=== PATIENT | male | born 2000 | race Asian ===

== ENCOUNTER 2021-05-09 01:27 | Inpatient (IN) ==
[2021-05-09] MEDS ORDERED: SODIUM CHLORIDE 0.9% 1000ML 1,000 ML IV STA (01:41)
[2021-05-09] MEDS ORDERED: ACETAMINOPHEN 500 MG TAB PO STA (01:43)
[2021-05-09 02:10] LABS: Basophils # (auto) 0.01 K/uL (0-0.2); Basophils % (auto) 0.1 %; Hemoglobin 15.6 g/dL (14.0-18.0); Immature Granulocytes # (auto) 0.01 K/uL (0.00-0.02); Immature Granulocytes % (auto) 0.1 %; Lymphocytes # (auto) 1.33 K/uL (1.2-3.4); Lymphocytes % (auto) 19.8 %; Mean Corpuscular Hemoglobin 31.3 pg (25-34); Mean Corpuscular Hgb Conc 36.3 g/dL (32-36); Mean Corpuscular Volume 86.3 fL (80-100); Mean Platelet Volume 9.7 fL (7.4-10.4); Monocytes # (auto) 0.31 K/uL (0.11-0.59); Monocytes % (auto) 4.6 %; Neutrophils # (auto) 5.07 K/uL (1.4-6.5); Neutrophils % (auto) 75.4 %; Platelet Count 267 K/uL (130-400); RDW Coefficient of Variation 12.2 % (11.5-14.5); RDW Standard Deviation 38.6 fL (36.4-46.3); Red Blood Count 4.98 M/uL (4.7-6.1); White Blood Count 6.73 K/uL (4.8-10.8)
[2021-05-09] MEDS ORDERED: CEFEPIME 2,000 MG/20 ML VIAL IV STA (02:23)
[2021-05-09] MEDS ORDERED: SODIUM CHLORIDE 0.9% 1000ML 1,000 ML IV ONE (02:25)
[2021-05-09 02:30] LABS: Alanine Aminotransferase 18 U/L (12-78); Aspartate Aminotransferase 12 U/L (15-37); BUN Creatinine Ratio 13.3 (10-20); Blood Urea Nitrogen 19 mg/dl (7-18); Calcium 8.8 mg/dl (8.5-10.1); Carbon Dioxide 25 mmol/L (21-32); Chloride 101 mmol/L (98-107); Creatinine Clr Calc Pharmacy 56.1 ml/min; Est GFR (African American) 82.4 ml/min; Est GFR (Non-African American) 71.1 ml/min; Glucose 144 mg/dl (70-99); Potassium 3.5 mmol/L (3.5-5.1); Sodium 128 mmol/L (136-145)
[2021-05-09 02:34] LABS: Alkaline Phosphatase 75 U/L (45-117); Globulin 4.2 gm/dl (2.5-4.0); Total Protein 8.2 gm/dl (6.4-8.2); Troponin I < 0.015 ng/ml (0-0.045)
[2021-05-09 02:59] LABS: Influenza A virus by PCR Negative (Negative); Influenza B virus by PCR Negative (Negative)
[2021-05-09 04:13] LABS: Creatine Kinase 176 U/L (39-308)
--- NOTE | 2021-05-09 04:30 | History & Physical Report ---
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 Febrile illness: -T-max 39.2C in ED -Uncertain etiology of febrile illness at this point in time -COVID-19 negative, flu negative -Chest x-ray with questionable left lower lobe pneumonia, -Elevated lactic acid on admission -Negative WBC -Pro-Caleb pending -Yadkin testing pending -In ED received cefepime Acute kidney injury: -Creatinine 1.42 on admission (no baseline) -Likely secondary to decreased oral intake over the last several days in the setting of febrile illness -Negative CK making rhabdo less likely source of kidney injury -Continue IVF with NSS at 200 mL/h -Continue to monitor Hyponatremia: -Sodium of 128 on admission -Potential contributions from decreased oral intake over the last several days with decreased solute Diet: Regular CODE STATUS: Full code DVT prophylaxis: Deferred at this time, encourage ambulation as tolerated (2) Acute kidney injury: (3) Hyponatremia: History of Present Illness Primary Care Provider: [facility] Kerwin Lawson is a 20-year-old [employer] student presents for evaluation of fevers, chills, sweats and cough persistent over the last 4 days. Worse recall any specific triggers or changes over these 4 days but notes that it worsened/came to ahead last night with persistent feeling of fevers, chills, sweats, and inability to warm himself despite cranking up his heat intolerance. No other sick contacts over this time. No new partners. Has not consumed any fluids of his normal ROM. Denies abdominal pain, nausea, vomiting. Has had a hard time eating and drinking due to a sore throat over this time. No past history of mono. Allergies Allergy/AdvReac Type Severity Reaction Status Date / Time No Known Allergies Allergy Verified 05/09/21 02:17 Home Medications Medication Instructions Recorded Confirmed Type acetaminophen 325 mg tablet 650 mg PO DIRECTED PRN 05/09/21 05/09/21 History (Tylenol) Past Med/Surg History Medical History (Updated 05/09/21 @ 14:03 by Charley Grove DO) Pneumonia Social History Smoking Status: Never smoker Hx Alcohol Use: Yes Hx Substance Use: No Preferred Language: Mauritanian Communication Ability: Effective Open Claims Representative Required: No Beliefs That Will Affect Care: None Current Living Situation: Other Current Living Situation Comment: apartment with room mates Feels Safe at Home: Yes Safety Concerns: Feels Safe At This Time Assistive Devices: None Review of Systems Review of Systems: All systems reviewed & are unremarkable except as noted in HPI & below Physical Exam Constitutional: WD/WN, vitals as above Eyes: PERRL, conjunctivae normal, anicteric sclerae Respiratory: normal respiratory effort, lungs clear to auscultation Auscultation: no crackles, no rales, no rhonchi and no wheezes Cardiovascular: Rate/Rhythm: regular rate and regular rhythm Heart Sounds: no gallop, no murmur and no cardiac rub Vessels: normal peripheral pulses; no JVD Extremities: no edema Gastrointestinal (Abdomen): Inspection/Auscultation: normal bowel sounds; abdomen not distended Percussion/Palpation: abdomen soft; abdomen nontender and no guarding Musculoskeletal: no cyanosis or clubbing, extremities motor strength 5/5 Skin: no rashes, warm and dry Neurologic: PERRL, EOMI, accommodation nl, no face palsy, no dysarthria CN's II-XI intact bilaterally and moves all extremities Psychiatric: Orientation: alert and oriented x 3 Results & Data Results & Data ([facility]) Vital Signs (Past 12 Hours) Vital Signs Temp Pulse Pulse Resp BP BP Pulse Ox 05/09/21 03:42 126 H 26 H 102/53 L 91 05/09/21 03:29 38.9 C H 05/09/21 03:00 132 H 24 101/56 L 94 05/09/21 02:50 132 H 100/54 L 94 05/09/21 02:33 140 H 30 H 91 05/09/21 02:00 144 H 20 119/69 93 05/09/21 01:51 140 H 24 96 05/09/21 01:50 39.2 C H 05/09/21 01:41 155 H 22 105/65 93 05/09/21 01:32 37.8 C H 175 H 22 109/59 L 88 L Laboratory Results 05/09/21 05/09/21 05/09/21 Range/Units 04:26 02:26 01:51 WBC (4.8-10.8) K/uL RBC (4.7-6.1) M/uL Hgb (14.0-18.0) g/dL Hct (42-52) % MCV (80-100) fL MCH (25-34) pg MCHC (32-36) g/dL RDW Std Deviation (36.4-46.3) fL RDW Coeff of Bj (11.5-14.5) % Plt Count (130-400) K/uL MPV (7.4-10.4) fL Immature Gran % (Auto) % Neut % (Auto) % Lymph % (Auto) % [place] % (Auto) % Eos % (Auto) % Baso % (Auto) % Neut # (Auto) (1.4-6.5) K/uL Lymph # (Auto) (1.2-3.4) K/uL [place] # (Auto) (0.11-0.59) K/uL Eos # (Auto) (0-0.5) K/uL Baso # (Auto) (0-0.2) K/uL Immature Gran # (Auto) (0.00-0.02) K/uL Sodium (136-145) mmol/L Potassium (3.5-5.1) mmol/L Chloride (98-107) mmol/L Carbon Dioxide (21-32) mmol/L Anion Gap (3-11) BUN (7-18) mg/dl Creatinine (0.6-1.4) mg/dl Est Cr Clr Drug Dosing ml/min Est GFR ( Amer) ml/min Est GFR (Non-Af Amer) ml/min BUN/Creatinine Ratio (10-20) Glucose (70-99) mg/dl Lactate Pending 2.4 H* (0.4-2.0) mmol/L Calcium (8.5-10.1) mg/dl Total Bilirubin (0.2-1) mg/dl AST (15-37) U/L ALT (12-78) U/L Alkaline Phosphatase (45-117) U/L Total Creatine Kinase (39-308) U/L Troponin I (0-0.045) ng/ml Total Protein (6.4-8.2) gm/dl Albumin (3.4-5.0) gm/dl Globulin (2.5-4.0) gm/dl Albumin/Globulin Ratio (0.9-2) COVID-19 Eval Order SARS-CoV-2 (PCR) NEGATIVE (Negative) Influ A Molecular Assay (Negative) Influ B Molecular Assay (Negative) 05/09/21 05/09/21 05/09/21 Range/Units 01:51 01:51 01:40 WBC 6.73 (4.8-10.8) K/uL RBC 4.98 (4.7-6.1) M/uL Hgb 15.6 (14.0-18.0) g/dL Hct 43.0 (42-52) % MCV 86.3 (80-100) fL MCH 31.3 (25-34) pg MCHC 36.3 H (32-36) g/dL RDW Std Deviation 38.6 (36.4-46.3) fL RDW Coeff of Bj 12.2 (11.5-14.5) % Plt Count 267 (130-400) K/uL MPV 9.7 (7.4-10.4) fL Immature Gran % (Auto) 0.1 % Neut % (Auto) 75.4 % Lymph % (Auto) 19.8 % [place] % (Auto) 4.6 % Eos % (Auto) 0.0 % Baso % (Auto) 0.1 % Neut # (Auto) 5.07 (1.4-6.5) K/uL Lymph # (Auto) 1.33 (1.2-3.4) K/uL [place] # (Auto) 0.31 (0.11-0.59) K/uL Eos # (Auto) 0.00 (0-0.5) K/uL Baso # (Auto) 0.01 (0-0.2) K/uL Immature Gran # (Auto) 0.01 (0.00-0.02) K/uL Sodium (136-145) mmol/L Potassium (3.5-5.1) mmol/L Chloride (98-107) mmol/L Carbon Dioxide (21-32) mmol/L Anion Gap (3-11) BUN (7-18) mg/dl Creatinine (0.6-1.4) mg/dl Est Cr Clr Drug Dosing ml/min Est GFR ( Amer) ml/min Est GFR (Non-Af Amer) ml/min BUN/Creatinine Ratio (10-20) Glucose (70-99) mg/dl Lactate (0.4-2.0) mmol/L Calcium (8.5-10.1) mg/dl Total Bilirubin (0.2-1) mg/dl AST (15-37) U/L ALT (12-78) U/L Alkaline Phosphatase (45-117) U/L Total Creatine Kinase (39-308) U/L Troponin I (0-0.045) ng/ml Total Protein (6.4-8.2) gm/dl Albumin (3.4-5.0) gm/dl Globulin (2.5-4.0) gm/dl Albumin/Globulin Ratio (0.9-2) COVID-19 Eval Order Covid19 at [facility] SARS-CoV-2 (PCR) (Negative) Influ A Molecular Assay Negative (Negative) Influ B Molecular Assay Negative (Negative) 05/09/21 Range/Units 01:40 WBC (4.8-10.8) K/uL RBC (4.7-6.1) M/uL Hgb (14.0-18.0) g/dL Hct (42-52) % MCV (80-100) fL MCH (25-34) pg MCHC (32-36) g/dL RDW Std Deviation (36.4-46.3) fL RDW Coeff of Bj (11.5-14.5) % Plt Count (130-400) K/uL MPV (7.4-10.4) fL Immature Gran % (Auto) % Neut % (Auto) % Lymph % (Auto) % [place] % (Auto) % Eos % (Auto) % Baso % (Auto) % Neut # (Auto) (1.4-6.5) K/uL Lymph # (Auto) (1.2-3.4) K/uL [place] # (Auto) (0.11-0.59) K/uL Eos # (Auto) (0-0.5) K/uL Baso # (Auto) (0-0.2) K/uL Immature Gran # (Auto) (0.00-0.02) K/uL Sodium 128 L (136-145) mmol/L Potassium 3.5 (3.5-5.1) mmol/L Chloride 101 (98-107) mmol/L Carbon Dioxide 25 (21-32) mmol/L Anion Gap 2.0 L (3-11) BUN 19 H (7-18) mg/dl Creatinine 1.42 H (0.6-1.4) mg/dl Est Cr Clr Drug Dosing 56.1 ml/min Est GFR ( Amer) 82.4 ml/min Est GFR (Non-Af Amer) 71.1 ml/min BUN/Creatinine Ratio 13.3 (10-20) Glucose 144 H (70-99) mg/dl Lactate (0.4-2.0) mmol/L Calcium 8.8 (8.5-10.1) mg/dl Total Bilirubin 1.0 (0.2-1) mg/dl AST 12 L (15-37) U/L ALT 18 (12-78) U/L Alkaline Phosphatase 75 (45-117) U/L Total Creatine Kinase 176 (39-308) U/L Troponin I < 0.015 (0-0.045) ng/ml Total Protein 8.2 (6.4-8.2) gm/dl Albumin 4.0 (3.4-5.0) gm/dl Globulin 4.2 H (2.5-4.0) gm/dl Albumin/Globulin Ratio 1.0 (0.9-2) COVID-19 Eval Order SARS-CoV-2 (PCR) (Negative) Influ A Molecular Assay (Negative) Influ B Molecular Assay (Negative) Supervising Physician Co-Signing Physician Notes Attending addendum: I have physically seen this patient, have supervised the medical residents activities, and agree with the H&P unless as otherwise noted. Assessment and Plan: Acute febrile illness- Status post cefepime IV on empiric basis Hold further antibiotics for now Order mono test as noted Acute kidney injury- Creatinine 1.42 upon admission, with presumed normal baseline CK added to labs was normal, making rhabdo less likely Continue IV fluid rehydration, with normal saline at 200 mils per hour Repeat laboratories in a.m. Remaining orders and notations as noted Resident Activity Tracking Resident Involvement: Resident Care Provided Care Provided: Adult Hospital Medicine
[2021-05-09] MEDS: SODIUM CHLORIDE 0.9% 1000ML 1,000 ML IV SCH ×2 (05:13→12:15)
[2021-05-09] MEDS ORDERED: MAGNESIUM HYDROXIDE SUSP 30 ML UDC PO PRN (07:00)
[2021-05-09] MEDS ORDERED: ONDANSETRON INJ 2 MG/ML 2 ML VIAL IV PRN (07:00)
[2021-05-09] MEDS ORDERED: POLYETHYLENE (MIRALAX) 17 GM PACK PO PRN (07:00)
[2021-05-09] MEDS ORDERED: ALUMINUM/MAGNESIUM SUSP 30 ML UDC PO PRN (07:00)
--- NOTE | 2021-05-09 07:32 | XRay Report ---
XR chest 1V portable INDICATION: [place] ^Fever . TECHNIQUE: Single frontal radiograph of the chest was obtained. Comparison: None available at the time of this dictation. FINDINGS: No lines and tubes are seen. The cardiomediastinal silhouette is normal. Interspace opacity is seen i n the left lower lungs. No evidence of pleural effusion or pneumothorax. IMPRESSION: Left greater than right lower lung opacity which may represent atelectasis, pneumonia, and/or aspirat ion. ACT 112: Negative or not required by law. Electronically signed by: Blake Prieto M.D. 05/09/2021 7:31 AM
[2021-05-09] MEDS: ACETAMINOPHEN 325 MG TAB PO PRN ×3 (08:40→22:21)
[2021-05-09 08:59] LABS: Procalcitonin 4.71 ng/ml (0-0.5)
[2021-05-09 09:02] LABS: Monotest Negative (Negative)
[2021-05-09 09:33] LABS: BUN Creatinine Ratio 10.9 (10-20); Calcium 8.4 mg/dl (8.5-10.1); Est GFR (African American) 87.6 ml/min; Est GFR (Non-African American) 75.6 ml/min; Magnesium 1.8 mg/dl (1.8-2.4); Potassium 4.2 mmol/L (3.5-5.1)
--- NOTE | 2021-05-09 11:52 | Hospitalist Progress Note ---
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 Pneumonia/ febrile illness - T-max 39.5 C since admission; remains febrile - COVID-19 negative, flu negative, monoscreen negative - Possibility for false negative COVID testing as testing performed ~48 hours after onset of symptoms (?). Plan to recheck COVID test tomorrow, 05/10, if patient is not clinically improving. - Chest XR 05/09: Left greater than right lower lung opacity which may represent atelectasis, pneumonia, and/or aspiration. - Elevated lactic acid on admission at 2.4 --> resolved at 1.1 - Elevated procalcitonin at 4.71 - Normal WBC - Continue cefepime. Added doxycycline for atypical coverage today, 05/09. - EBV pending. Blood cultures pending. Urine legionella pending. Acute kidney injury - Creatinine 1.42 on admission (no baseline) --> improved to 1.35 - Likely secondary to decreased oral intake over the last several days in the setting of febrile illness - Negative CK (176) making rhabdo less likely source of kidney injury - Continue IVF with NSS at 200 mL/h - Recheck BMP qAM Hyponatremia - Sodium of 128 on admission - Potential contributions from decreased oral intake over the last several days with decreased solute - Recheck BMP as noted above Diet: Regular CODE STATUS: Full code DVT prophylaxis: Deferred at this time, encourage ambulation as tolerated (2) Febrile illness, acute: (3) Acute kidney injury: (4) Hyponatremia: Admission and Anticipated Discharge Date Admission Date: May 09, 2021 Supervising Physician Co-Signing Physician Notes I personally examined the patient and verified all dill points of history and exam, discussed case, and agree with decision making with Dr Grove cough better, chills better. no dyspnea. vitals noted nad heent nc at mmm cardio tachy with forceful impulse no r/m/g lungs cta b/l no r/r/w good effort no accessory muscles good effort Pneumonia/sepsis/severe sepsis present on admissionviral versus bacterial. Covid negative, he is vaccinated, but depending on his clinical course we may need to retest. Something such as Legionella could fitis on atypical coverage with doxy, urine antigen pending. Given severe sepsis (accounting for FABY) currently on coverage for more harvey pathogenson Doxy and cefepime, continue this for now with serial exams/serial labs. Fortunately on revisit this afternoon appeared much better than she did this morning to Dr. Grove. AKIlikely related to sepsis/dehydrationIV fluids, supportive care. Subjective Patient seen and evaluated at bedside this morning. States symptoms unchanged; persistent fever, chills, cough, sore throat, mild shortness of breath, and decreased appetite. No abdominal pain, nausea, vomiting, HICKS, lightheadedness, dizziness, changes in vision. Additionally history obtained: symptoms had gradual onset Friday evening (2.5 days ago). Has been taking Tylenol prn. Sister (who is a senior at [employer]) has also been sick x2+ weeks with URI; no known COVID hx. Patient is fully vaccinated against COVID. Roommates have not been ill recently. Patient does not report outdoor recreational activities, including hiking, and has had no known tick bites. Review of Systems Review of Systems: See HPI Physical Exam Physical Exam: GENERAL: Ill appearing. Well developed and well nourished. Vital signs reviewed as above. EYES: PERRLA. EOMI. Anicteric sclerae. HENT: Moist mucous membranes. RESPIRATORY: Hypoxic on monitor, O2 92-94% on room air. Rhonci bilateral lower lobes. Normal respiratory effort. CARDIOVASCULAR: Tachycardic. Regular rhythm. No murmurs. ABDOMEN: Soft, non-tender and non-distended. No palpable masses. Normal bowel sounds. EXTREMITIES: No edema. Non-tender. SKIN: Warm, dry. No rashes or lesions. NEUROLOGIC: No focal neurological deficits. CN II-XII grossly intact, but not individually tested. PSYCHIATRIC: Cooperative. Appropriate mood and affect. Results & Data Results & Data ([facility]) Vital Signs (Past 12 Hours) Vital Signs Temp Pulse Pulse Resp BP BP Pulse Ox 05/09/21 09:24 120 H 05/09/21 08:26 38.5 C H 122 H 22 153/91 H 96 05/09/21 05:15 37.3 C 105 H 115/68 94 09/29/21 05:00 110 H 19 93 05/09/21 04:46 109 H 93 05/09/21 04:00 118 H 21 109/65 91 05/09/21 03:42 126 H 26 H 102/53 L 91 05/09/21 03:29 38.9 C H 05/09/21 03:00 132 H 24 101/56 L 94 05/09/21 02:50 132 H 100/54 L 94 05/09/21 02:33 140 H 30 H 91 05/09/21 02:00 144 H 20 119/69 93 05/09/21 01:51 140 H 24 96 05/09/21 01:50 39.2 C H 05/09/21 01:41 155 H 22 105/65 93 05/09/21 01:32 37.8 C H 175 H 22 109/59 L 88 L Resident Activity Tracking Resident Involvement: Resident Care Provided Care Provided: [facility]
[2021-05-09] MEDS ORDERED: KETOROLAC TROMETHAMINE 15 MG/ML VIAL IV ONE (14:43)
[2021-05-09] MEDS: DOXYCYCLINE HYCLATE 100 MG in DEXTROSE 5% 100 ML IV SCH (15:40)
[2021-05-09] MEDS: CEFEPIME 2,000 MG in SYRINGE 0 ML IV SCH (16:05)
--- NOTE | 2021-05-09 19:38 | Emergency Department Note ---
History of Present Illness General Chief complaint: Illness Stated complaint: SHAKING,CHILLS,FEELS EXTREMELY COLD Time Seen by Provider: 05/09/21 01:41 Source: patient and RN notes reviewed Mode of arrival: ambulatory Limitations: no limitations History of Present Illness Provider complaint: Shaking, chills This patient is a 20-year-old male who presents to the emergency department with complaint of shaking and chills. Patient's symptom is began approximately 2 to 3 days ago. The patient has had some increased shortness of breath and cough. He believes he has had a fever but is not certain. He called his parents who referred him to the emergency department for further evaluation. Patient denies any vomiting or diarrhea. He denies any known sick contacts. Home Medications Medication Instructions Recorded Confirmed Type acetaminophen 325 mg tablet 650 mg PO DIRECTED PRN 05/09/21 05/09/21 History (Tylenol) acetaminophen 300 mg-codeine 30 mg 1 tab PO HS PRN #5 tab 05/11/21 Rx tablet cefdinir 300 mg capsule 300 mg PO BID 10 Days #20 cap 05/11/21 Rx doxycycline hyclate 100 mg capsule 100 mg PO BID 10 Days #20 cap 05/11/21 Rx Allergies Allergy/AdvReac Type Severity Reaction Status Date / Time No Known Allergies Allergy Verified 05/09/21 02:17 Past Med/Surg History Medical History Pneumonia Social History Smoking Status: Never smoker Hx Alcohol Use: Yes Hx Substance Use: No Preferred Language: Armenian Communication Ability: Effective Buildings [employer] Required: No Beliefs That Will Affect Care: None Current Living Situation: Other Current Living Situation Comment: apartment with room mates Feels Safe at Home: Yes Assistive Devices: None Review of Systems See HPI for pertinent positives & negatives. and A total of 10 systems reviewed and were otherwise negative Physical Exam Vital Signs Vital Signs - 24 hr 05/09/21 01:32 05/09/21 01:41 05/09/21 01:50 Temperature 37.8 C H 39.2 C H Temperature Source Oral Oral Pulse Rate 175 H Pulse Rate [Apical] 155 H Pulse Rate from SpO2 Sensor Respiratory Rate 22 22 Respiratory Effort / Characteristics Non-Labored Spontaneous Respiratory Depth Normal Blood Pressure 109/59 L Blood Pressure [Right Arm] 105/65 Blood Pressure Mean 75 Blood Pressure Mean [Right Arm] 78 Pulse Oximetry 88 L 93 Oxygen Delivery Method Room Air Room Air Sepsis Recent Fever Within 48 Hours Yes Sepsis New/Unexplained Change in Mental Status No Sepsis Action Taken by Nursing No Action Required 05/09/21 01:51 05/09/21 02:00 05/09/21 02:33 Temperature Temperature Source Pulse Rate 144 H 140 H Pulse Rate [Apical] 140 H Pulse Rate from SpO2 Sensor 143 H 141 H Respiratory Rate 24 20 30 H Respiratory Effort / Characteristics Respiratory Depth Blood Pressure 119/69 Blood Pressure [Right Arm] Blood Pressure Mean 85 Blood Pressure Mean [Right Arm] Pulse Oximetry 96 93 91 Oxygen Delivery Method Room Air Sepsis Recent Fever Within 48 Hours Sepsis New/Unexplained Change in Mental Status Sepsis Action Taken by Nursing 05/09/21 02:50 05/09/21 03:00 05/09/21 03:29 Temperature 38.9 C H Temperature Source Oral Pulse Rate 132 H Pulse Rate [Apical] 132 H Pulse Rate from SpO2 Sensor 132 H Respiratory Rate 24 Respiratory Effort / Characteristics SOB on Exertion Respiratory Depth Blood Pressure 101/56 L Blood Pressure [Right Arm] 100/54 L Blood Pressure Mean 71 Blood Pressure Mean [Right Arm] 69 Pulse Oximetry 94 94 Oxygen Delivery Method Room Air Sepsis Recent Fever Within 48 Hours Sepsis New/Unexplained Change in Mental Status Sepsis Action Taken by Nursing 05/09/21 03:42 05/09/21 04:00 Temperature Temperature Source Pulse Rate 126 H 118 H Pulse Rate [Apical] Pulse Rate from SpO2 Sensor 126 H 118 H Respiratory Rate 26 H 21 Respiratory Effort / Characteristics Respiratory Depth Blood Pressure 102/53 L 109/65 Blood Pressure [Right Arm] Blood Pressure Mean 69 79 Blood Pressure Mean [Right Arm] Pulse Oximetry 91 91 Oxygen Delivery Method Sepsis Recent Fever Within 48 Hours Sepsis New/Unexplained Change in Mental Status Sepsis Action Taken by Nursing Vital signs reviewed. General: Somewhat ill appearing 20-year-old male, in no significant distress. HEENT: No scleral icterus, PERRLA, neck supple. Atraumatic. Cardiovascular: Regular rate and rhythm, no extra sounds. Pulmonary: Coarse breath sounds to auscultation bilaterally, increased work of breathing on room air. Abdomen: Soft, nontender, nondistended, positive bowel sounds. Musculoskeletal: Atraumatic, no peripheral edema. Neurologic: Patient awake alert and oriented x 3 Skin: Warm, dry, no rash Course Administered Medications Discontinued Medications Acetaminophen (Acetaminophen 500 Mg Tab) 1,000 mg PO NOW STA Stop: 05/09/21 01:44 Last Admin: 05/09/21 01:50 Dose: 1,000 mg Documented by: [id number] Acetaminophen (Acetaminophen 325 Mg Tab) 650 mg PO Q4H PRN PRN Reason: pain/fever Stop: 06/08/21 06:59 Last Admin: 05/10/21 22:51 Dose: 650 mg Documented by: [id number] Admin: 05/09/21 22:21 Dose: 650 mg Documented by: [id number] Admin: 05/09/21 12:42 Dose: 650 mg Documented by: [id number] Admin: 05/09/21 08:40 Dose: 650 mg Documented by: [id number] Guaifenesin/Dextromethorphan (Guaifenesin/Dextrom Syrup 200mg/20mg 10ml Udc) 10 ml PO Q6H PRN PRN Reason: Cough Stop: 06/10/21 05:49 Last Admin: 05/11/21 10:59 Dose: 10 ml Documented by: [id number] Sodium Chloride (Nss 1000ml) 1,000 mls @ 999 mls/hr IV .Q1H1M STA Stop: 05/09/21 02:41 Last Infusion: 05/09/21 02:49 Dose: 0 mls/hr Documented by: [id number] Admin: 05/09/21 01:46 Dose: 999 mls/hr Documented by: [id number] Cefepime HCl (Maxipime) 2,000 mg in 20 mls @ 5 mls/min IV NOW STA; Protocol Stop: 05/09/21 02:26 Last Admin: 05/09/21 02:44 Dose: 5 mls/min Documented by: [id number] Sodium Chloride (Nss 1000ml) 1,000 mls @ 999 mls/hr IV .Q1H1M ONE Stop: 05/09/21 03:25 Last Infusion: 05/09/21 03:37 Dose: 0 mls/hr Documented by: [id number] Admin: 05/09/21 02:44 Dose: 999 mls/hr Documented by: [id number] Sodium Chloride (Nss 1000ml) 1,000 mls @ 200 mls/hr IV .Q5H STEPHANIE Stop: 05/09/21 14:59 Last Infusion: 05/09/21 15:44 Dose: 0 mls/hr Documented by: [id number] Admin: 05/09/21 12:15 Dose: 200 mls/hr Documented by: [id number] Infusion: 05/09/21 10:13 Dose: 200 mls/hr Documented by: [id number] Admin: 05/09/21 05:13 Dose: 200 mls/hr Documented by: [id number] Cefepime HCl 2,000 mg/ Syringe 20 mls @ 5 mls/min IV Q12H STEPHANIE; Protocol Stop: 05/16/21 14:59 Last Admin: 05/11/21 03:35 Dose: 5 mls/min Documented by: [id number] Admin: 05/10/21 15:01 Dose: 5 mls/min Documented by: [id number] Admin: 05/10/21 03:05 Dose: 5 mls/min Documented by: [id number] Admin: 05/09/21 16:05 Dose: 5 mls/min Documented by: [id number] Doxycycline Hyclate 100 mg/ (Dextrose) 110 mls @ 50 mls/hr IV Q12H STEPHANIE Stop: 05/16/21 14:59 Last Infusion: 05/11/21 05:40 Dose: 0 mls/hr Documented by: [id number] Admin: 05/11/21 03:35 Dose: 50 mls/hr Documented by: [id number] Infusion: 05/10/21 17:11 Dose: 0 mls/hr Documented by: [id number] Admin: 05/10/21 14:59 Dose: 50 mls/hr Documented by: [id number] Infusion: 05/10/21 07:05 Dose: 0 mls/hr Documented by: [id number] Admin: 05/10/21 03:05 Dose: 50 mls/hr Documented by: [id number] Infusion: 05/09/21 18:15 Dose: 0 mls/hr Documented by: [id number] Admin: 05/09/21 15:40 Dose: 50 mls/hr Documented by: [id number] Lactated Ringer's (Lr) 1,000 mls @ 150 mls/hr IV .Q6H40M STEPHANIE Stop: 06/08/21 18:59 Last Admin: 05/11/21 11:01 Dose: 150 mls/hr Documented by: [id number] Infusion: 05/11/21 11:01 Dose: 150 mls/hr Documented by: [id number] Admin: 05/11/21 04:58 Dose: 150 mls/hr Documented by: [id number] Infusion: 05/11/21 04:58 Dose: 150 mls/hr Documented by: [id number] Admin: 05/10/21 22:28 Dose: 150 mls/hr Documented by: [id number] Admin: 05/10/21 15:37 Dose: Not Given Documented by: [id number] Infusion: 05/10/21 12:26 Dose: 0 mls/hr Documented by: [id number] Admin: 05/10/21 07:14 Dose: 150 mls/hr Documented by: [id number] Infusion: 05/10/21 07:14 Dose: 150 mls/hr Documented by: [id number] Admin: 05/10/21 04:13 Dose: 150 mls/hr Documented by: [id number] Infusion: 05/10/21 02:56 Dose: 150 mls/hr Documented by: [id number] Admin: 05/09/21 20:15 Dose: 150 mls/hr Documented by: [id number] Potassium Phosphate 40 mmol/ (Sodium Chloride) 1,013.3333 mls @ 100 mls/hr IV ONE ONE Stop: 05/10/21 21:37 Last Infusion: 05/10/21 22:27 Dose: 0 mls/hr Documented by: [id number] Admin: 05/10/21 12:22 Dose: 100 mls/hr Documented by: [id number] Ioversol (Optiray 320 125ml) 120 ml IV ONCE ONE Stop: 05/10/21 11:26 Last Admin: 05/10/21 11:27 Dose: 120 ml Documented by: [id number] Ketorolac Tromethamine (Ketorolac Tromethamine 15 Mg/Ml Vial) 10 mg IV NOW ONE Stop: 05/09/21 14:44 Last Admin: 05/09/21 16:52 Dose: Not Given Documented by: [id number] Levalbuterol HCl (Levalbuterol Hcl 0.63 Mg/3 Ml Neb) 0.63 mg NEB Q6R PRN PRN Reason: cough and wheeze Stop: 06/09/21 00:59 Last Admin: 05/11/21 11:33 Dose: 0.63 mg Documented by: [id number] Admin: 05/09/21 22:37 Dose: 0.63 mg Documented by: [id number] Medical Decision Making Differential Diagnosis Viral syndrome, otitis, pharyngitis, pneumonia, influenza, meningitis, urinary tract infection, sepsis, bacteremia, as well as other pathologies. Home Medications Current Medication List: was personally reviewed by me Laboratory Data Attestation: I reviewed the patient's lab results. Result diagrams: 05/11/21 07:51 05/11/21 07:51 Lab Results 05/09/21 05/09/21 05/09/21 Range/Units 01:40 01:40 01:51 WBC 6.73 (4.8-10.8) K/uL RBC 4.98 (4.7-6.1) M/uL Hgb 15.6 (14.0-18.0) g/dL Hct 43.0 (42-52) % MCV 86.3 (80-100) fL MCH 31.3 (25-34) pg MCHC 36.3 H (32-36) g/dL RDW Std Deviation 38.6 (36.4-46.3) fL RDW Coeff of Bj 12.2 (11.5-14.5) % Plt Count 267 (130-400) K/uL MPV 9.7 (7.4-10.4) fL Immature Gran % (Auto) 0.1 % Neut % (Auto) 75.4 % Lymph % (Auto) 19.8 % Bradley % (Auto) 4.6 % Eos % (Auto) 0.0 % Baso % (Auto) 0.1 % Neut # (Auto) 5.07 (1.4-6.5) K/uL Lymph # (Auto) 1.33 (1.2-3.4) K/uL Bradley # (Auto) 0.31 (0.11-0.59) K/uL Eos # (Auto) 0.00 (0-0.5) K/uL Baso # (Auto) 0.01 (0-0.2) K/uL Immature Gran # (Auto) 0.01 (0.00-0.02) K/uL Sodium 128 L (136-145) mmol/L Potassium 3.5 (3.5-5.1) mmol/L Chloride 101 (98-107) mmol/L Carbon Dioxide 25 (21-32) mmol/L Anion Gap 2.0 L (3-11) BUN 19 H (7-18) mg/dl Creatinine 1.42 H (0.6-1.4) mg/dl Est Cr Clr Drug Dosing 56.1 ml/min Est GFR ( Amer) 82.4 ml/min Est GFR (Non-Af Amer) 71.1 ml/min BUN/Creatinine Ratio 13.3 (10-20) Glucose 144 H (70-99) mg/dl Lactate (0.4-2.0) mmol/L Calcium 8.8 (8.5-10.1) mg/dl Total Bilirubin 1.0 (0.2-1) mg/dl AST 12 L (15-37) U/L ALT 18 (12-78) U/L Alkaline Phosphatase 75 (45-117) U/L Total Creatine Kinase 176 (39-308) U/L Troponin I < 0.015 (0-0.045) ng/ml Total Protein 8.2 (6.4-8.2) gm/dl Albumin 4.0 (3.4-5.0) gm/dl Globulin 4.2 H (2.5-4.0) gm/dl Albumin/Globulin Ratio 1.0 (0.9-2) Procalcitonin (0-0.5) ng/ml COVID-19 Eval Order Covid19 at [facility] SARS-CoV-2 (PCR) (Negative) EBV Capsid Ag IgG Ab U/mL EBV Capsid Ag IgM Ab U/mL EBV EA Restrict+Diffuse U/mL EBV Nuclear Antigen Ab U/mL EBV Antibody Interp Monoscreen (Negative) Influ A Molecular Assay (Negative) Influ B Molecular Assay (Negative) 05/09/21 05/09/21 05/09/21 Range/Units 01:51 01:51 02:26 WBC (4.8-10.8) K/uL RBC (4.7-6.1) M/uL Hgb (14.0-18.0) g/dL Hct (42-52) % MCV (80-100) fL MCH (25-34) pg MCHC (32-36) g/dL RDW Std Deviation (36.4-46.3) fL RDW Coeff of Bj (11.5-14.5) % Plt Count (130-400) K/uL MPV (7.4-10.4) fL Immature Gran % (Auto) % Neut % (Auto) % Lymph % (Auto) % Bradley % (Auto) % Eos % (Auto) % Baso % (Auto) % Neut # (Auto) (1.4-6.5) K/uL Lymph # (Auto) (1.2-3.4) K/uL Bradley # (Auto) (0.11-0.59) K/uL Eos # (Auto) (0-0.5) K/uL Baso # (Auto) (0-0.2) K/uL Immature Gran # (Auto) (0.00-0.02) K/uL Sodium (136-145) mmol/L Potassium (3.5-5.1) mmol/L Chloride (98-107) mmol/L Carbon Dioxide (21-32) mmol/L Anion Gap (3-11) BUN (7-18) mg/dl Creatinine (0.6-1.4) mg/dl Est Cr Clr Drug Dosing ml/min Est GFR ( Amer) ml/min Est GFR (Non-Af Amer) ml/min BUN/Creatinine Ratio (10-20) Glucose (70-99) mg/dl Lactate 2.4 H* (0.4-2.0) mmol/L Calcium (8.5-10.1) mg/dl Total Bilirubin (0.2-1) mg/dl AST (15-37) U/L ALT (12-78) U/L Alkaline Phosphatase (45-117) U/L Total Creatine Kinase (39-308) U/L Troponin I (0-0.045) ng/ml Total Protein (6.4-8.2) gm/dl Albumin (3.4-5.0) gm/dl Globulin (2.5-4.0) gm/dl Albumin/Globulin Ratio (0.9-2) Procalcitonin (0-0.5) ng/ml COVID-19 Eval Order SARS-CoV-2 (PCR) NEGATIVE (Negative) EBV Capsid Ag IgG Ab U/mL EBV Capsid Ag IgM Ab U/mL EBV EA Restrict+Diffuse U/mL EBV Nuclear Antigen Ab U/mL EBV Antibody Interp Monoscreen (Negative) Influ A Molecular Assay Negative (Negative) Influ B Molecular Assay Negative (Negative) 05/09/21 05/09/2105/09/21 Range/Units 04:26 04:27 04:27 WBC (4.8-10.8) K/uL RBC (4.7-6.1) M/uL Hgb (14.0-18.0) g/dL Hct (42-52) % MCV (80-100) fL MCH (25-34) pg MCHC (32-36) g/dL RDW Std Deviation (36.4-46.3) fL RDW Coeff of Bj (11.5-14.5) % Plt Count (130-400) K/uL MPV (7.4-10.4) fL Immature Gran % (Auto) % Neut % (Auto) % Lymph % (Auto) % Bradley % (Auto) % Eos % (Auto) % Baso % (Auto) % Neut # (Auto) (1.4-6.5) K/uL Lymph # (Auto) (1.2-3.4) K/uL Bradley # (Auto) (0.11-0.59) K/uL Eos # (Auto) (0-0.5) K/uL Baso # (Auto) (0-0.2) K/uL Immature Gran # (Auto) (0.00-0.02) K/uL Sodium (136-145) mmol/L Potassium (3.5-5.1) mmol/L Chloride (98-107) mmol/L Carbon Dioxide (21-32) mmol/L Anion Gap (3-11) BUN (7-18) mg/dl Creatinine (0.6-1.4) mg/dl Est Cr Clr Drug Dosing ml/min Est GFR ( Amer) ml/min Est GFR (Non-Af Amer) ml/min BUN/Creatinine Ratio (10-20) Glucose (70-99) mg/dl Lactate 1.1 (0.4-2.0) mmol/L Calcium (8.5-10.1) mg/dl Total Bilirubin (0.2-1) mg/dl AST (15-37) U/L ALT (12-78) U/L Alkaline Phosphatase (45-117) U/L Total Creatine Kinase (39-308) U/L Troponin I (0-0.045) ng/ml Total Protein (6.4-8.2) gm/dl Albumin (3.4-5.0) gm/dl Globulin (2.5-4.0) gm/dl Albumin/Globulin Ratio (0.9-2) Procalcitonin 4.71 H (0-0.5) ng/ml COVID-19 Eval Order SARS-CoV-2 (PCR) (Negative) EBV Capsid Ag IgG Ab 87.20 H U/mL EBV Capsid Ag IgM Ab <36.00 U/mL EBV EA Restrict+Diffuse <9.00 U/mL EBV Nuclear Antigen Ab 250.00 H U/mL EBV Antibody Interp SEE NOTE Monoscreen Negative (Negative) Influ A Molecular Assay (Negative) Influ B Molecular Assay (Negative) Imaging Data Radiologist's Impression: Chest X-Ray 05/09/21 01:42 XR chest 1V portable INDICATION: [place] ^Fever . TECHNIQUE: Single frontal radiograph of the chest was obtained. Comparison: None available at the time of this dictation. FINDINGS: No lines and tubes are seen. The cardiomediastinal silhouette is normal. Interspace opacity is seen in the left lower lungs. No evidence of pleural effusion or pneumothorax. IMPRESSION: Left greater than right lower lung opacity which may represent atelectasis, pneumonia, and/or aspiration. ACT 112: Negative or not required by law. Electronically signed by: Blake Prieto M.D. 05/09/2021 7:31 AM Blood Pressure Blood Pressure Findings: Normal blood pressure Blood Pressure Disposition: did not require urgent referral MDM Narrative This patient was evaluated and appeared to be in no significant distress. IV access was obtained and laboratory work was drawn. An order for cardiac monitoring was placed and the patient is noted to be in a sinus tachycardia at 155 bpm. The patient was hydrated with normal saline solution. Blood cultures and a lactic acid were sent. Tylenol 1000 mg and cefepime 2 g were administered. Patient's chest x-ray notes bilateral lower lung opacities consistent with pneumonia. Covid swab was obtained and is negative. The patient was much improved after the above interventions. Patient was discussed with the hospitalist service who will evaluate the patient for admission and further management. Patient was made aware of the plan and agreed. Impression & Plan Pneumonia Discharge Plan Visit Data Chief Complaint: Illness Stated Complaint: SHAKING,CHILLS,FEELS EXTREMELY COLD ED Provider: Alina,Amaya B Discharge Problem: Pneumonia Patient Disposition: Admitted As Inpatient Condition: Good Discharge Instructions Interventions: ED Discharge Assessment Last Done: 05/09/21 05:30 Discharge Problem: Pneumonia Qualifiers: Pneumonia type: due to unspecified organism Laterality: bilateral Lung location: lower lobe of lung Qualified Code(s): J18.9 - Pneumonia, unspecified organism
[2021-05-09] MEDS: LACTATED RINGER'S 1,000 ML IV SCH (20:15)
[2021-05-09] MEDS: LEVALBUTEROL HCL 0.63 MG/3 ML NEB NEB PRN (22:37)
[2021-05-10] MEDS: CEFEPIME 2,000 MG in SYRINGE 0 ML IV SCH ×2 (03:05→15:01)
[2021-05-10] MEDS: DOXYCYCLINE HYCLATE 100 MG in DEXTROSE 5% 100 ML IV SCH ×2 (03:05→14:59)
[2021-05-10] MEDS: LACTATED RINGER'S 1,000 ML IV SCH ×4 (04:13→22:28)
[2021-05-10 10:26] LABS: Basophils # (auto) 0.01 K/uL (0-0.2); Basophils % (auto) 0.1 %; Eosinophils # (auto) 0.08 K/uL (0-0.5); Eosinophils % (auto) 0.9 %; Hematocrit (blood only) 36.7 % (42-52); Hemoglobin 13.1 g/dL (14.0-18.0); Immature Granulocytes # (auto) 0.02 K/uL (0.00-0.02); Immature Granulocytes % (auto) 0.2 %; Lymphocytes # (auto) 0.92 K/uL (1.2-3.4); Lymphocytes % (auto) 9.9 %; Mean Corpuscular Hemoglobin 30.9 pg (25-34); Mean Corpuscular Hgb Conc 35.7 g/dL (32-36); Mean Corpuscular Volume 86.6 fL (80-100); Mean Platelet Volume 9.2 fL (7.4-10.4); Monocytes # (auto) 0.82 K/uL (0.11-0.59); Monocytes % (auto) 8.8 %; Neutrophils # (auto) 7.49 K/uL (1.4-6.5); Neutrophils % (auto) 80.1 %; Platelet Count 208 K/uL (130-400); RDW Coefficient of Variation 12.1 % (11.5-14.5); RDW Standard Deviation 38.8 fL (36.4-46.3); Red Blood Count 4.24 M/uL (4.7-6.1); White Blood Count 9.34 K/uL (4.8-10.8)
[2021-05-10 10:49] LABS: Albumin Level 3.1 gm/dl (3.4-5.0); BUN Creatinine Ratio 8.6 (10-20); Calcium 8.5 mg/dl (8.5-10.1); Creatinine Clr Calc Pharmacy 95.9 ml/min; Est GFR (African American) 122.9 ml/min; Est GFR (Non-African American) 106.1 ml/min; Magnesium 2.2 mg/dl (1.8-2.4); Potassium 3.5 mmol/L (3.5-5.1)
[2021-05-10 10:55] LABS: Epstein Barr Virus Early Ag Ab <9.00 U/mL
[2021-05-10 11:00] LABS: Albumin Globulin Ratio 0.8 (0.9-2); Bilirubin,Total 0.8 mg/dl (0.2-1); Globulin 3.7 gm/dl (2.5-4.0); Phosphorus 1.4 mg/dl (2.5-4.9); Total Protein 6.8 gm/dl (6.4-8.2)
[2021-05-10] MEDS ORDERED: POTASSIUM PHOS 3 MMOL/1 ML INFUSION IV STA (11:10)
[2021-05-10] MEDS ORDERED: OPTIRAY 320 125ml IV ONE (11:25)
[2021-05-10] MEDS ORDERED: POTASSIUM PHOSPHATE 40 MMOL in SODIUM CHLORIDE 0.9% 1000ML 1,000 ML IV ONE (11:30)
--- NOTE | 2021-05-10 12:10 | CT Scan Report ---
CT ANGIOGRAM OF THE CHEST CLINICAL HISTORY: Dyspnea. Fever. COMPARISON STUDY: Chest x-ray dated 05/09/2021. TECHNIQUE: Following the IV administration of 120 cc of Optiray 320, CT angiogram of the chest was pe rformed from the upper abdomen to the thoracic inlet utilizing the pulmonary embolus protocol. Images are reviewed in the axial, sagittal, and coronal planes. 3-D MIPS images are created and assessed. I V contrast was administered without complication. A dose lowering technique was utilized adhering to the principles of ALARA. CT DOSE: 306.06 mGy.cm FINDINGS: Thyroid: Imaged portions of the thyroid gland are normal in size and attenuation. Thoracic aorta: The thoracic aorta is normal in caliber and demonstrates standard 3-vessel arch anato my. No dissection is seen. Pulmonary vasculature: The pulmonary trunk is normal in caliber. There are no filling defects identif ied in main, lobar, or segmental pulmonary branches to suggest pulmonary embolus. Heart: The heart is normal in size and without pericardial effusion. Lungs and pleural spaces: There is dense airspace consolidation at both lung bases, left greater than right. Milder patchy consolidation is seen throughout the left upper lobe and the right middle lobe. The trachea and central airways are clear. Blebs are seen at both apices and measure up to 2.2 cm. T here are trace pleural effusions. Mediastinum: There is no mediastinal lymphadenopathy. Shavonne: Clear. Axillae: There is no axillary lymphadenopathy. Upper abdomen: Partially visualized upper abdominal viscera is within normal limits. Skeletal structures: No lytic or blastic bony lesions are seen. IMPRESSION: 1. There is no evidence of pulmonary embolus in the main, lobar, or segmental pulmonary arteries. 2. Multifocal airspace consolidation as detailed above is typical for pneumonia. Clinical correlation will be required and radiographic follow-up to resolution is recommended. 3. Trace pleural effusions. 4. Additional findings as above. ACT 112: Negative or not required by law. Electronically signed by: Brennan Figueroa M.D. 05/10/2021 12:09 PM
--- NOTE | 2021-05-10 18:26 | Hospitalist Progress Note ---
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 Pneumonia/ febrile illness - T-max 39.5 C since admission; has been afebrile since yesterday afternoon - COVID-19 negative, flu negative, monoscreen negative - Chest XR 05/09: Left greater than right lower lung opacity which may represent atelectasis, pneumonia, and/or aspiration. - Chest CTA 05/10: There is no evidence of pulmonary embolus in the main, lobar, or segmental pulmonary arteries. Multifocal airspace consolidation as detailed above is typical for pneumonia. Clinical correlation will be required and radiographic follow-up to resolution is recommended. Trace pleural effusions. - Elevated lactic acid on admission at 2.4 --> resolved at 1.1 - Elevated procalcitonin at 4.71 on admission --> worsened today to 7.81; will continue to monitor - Remains w/ normal WBC - Continue cefepime and doxycycline. - EBV reveals hx of mono; no active infection. Blood cultures negative to date. Urine legionella pending. MRSA nares pending. Acute kidney injury, resolved - Creatinine 1.42 on admission (no baseline) --> improved to 1.02 today - Likely secondary to decreased oral intake over the last several days in the setting of febrile illness - Recheck BMP qAM Hyponatremia, resolved - Sodium of 128 on admission --> resolved at 138 today - Suspect contribution from decreased oral intake over the last several days prior to admission Diet: Regular CODE STATUS: Full code DVT prophylaxis: Deferred at this time, encourage ambulation as tolerated (2) Febrile illness, acute: (3) Acute kidney injury: (4) Hyponatremia: Admission and Anticipated Discharge Date Admission Date: May 09, 2021 Supervising Physician Co-Signing Physician Notes I personally examined the patient and verified all dill points of history and exam, discussed case, and agree with decision making with Dr Grove Still weak fatigued, but overall seems to be improving. Did have but worse dyspnea on exertion this morning though. Seems to be feeling better by the time I see him around noon. Vitals noted, in general he is awake and alert pleasant no distress. HEENT normocephalic atraumatic mucous membranes moist. Lungs are faint left greater than right basilar rales good air entry no accessory muscle use good effort. Neuro shows no focal deficits. CT reviewed both report and images, and discussed with the patient as far as the lack of PEs and the infiltrate. Community-acquired pneumonia with severe sepsis (as manifested by FABY) present on admissionappears to be stabilizing. Continue current antibiotics, supportive care, serial exams. Given that he is young and otherwise healthy, hopefully he will start to turn the corner soon. FABY has improved with fluids, hyponatremia has resolved. Otherwise as above Subjective Patient seen and evaluated at bedside this morning. Complains of worsening shortness of breath, specifically with dyspnea on exertion. Specifically, patient noting that he is having difficulty even walking from the bed to the bathroom due to to IVEY. He has been afebrile since yesterday afternoon. Remains tachycardic. Denies CP. Eating well w/o abd pain, nausea, or vomiting. No leg pain or leg swelling. Review of Systems Review of Systems: See HPI Physical Exam Physical Exam: GENERAL: Well developed and well nourished. Vital signs reviewed as above. EYES: PERRLA. EOMI. Anicteric sclerae. HENT: Moist mucous membranes. RESPIRATORY: Rhonci bilateral lower lobes, improved from yesterday. Normal respiratory effort. CARDIOVASCULAR: Tachycardic. Regular rhythm. No murmurs. ABDOMEN: Soft, non-tender and non-distended. No palpable masses. Normal bowel sounds. EXTREMITIES: No edema. Non-tender. SKIN: Warm, dry. No rashes or lesions. NEUROLOGIC: A/O x3. No focal neurological deficits. CN II-XII grossly intact, but not individually tested. PSYCHIATRIC: Cooperative. Appropriate mood and affect. Results & Data Results & Data ([facility]) Vital Signs (Past 12 Hours) Vital Signs Temp Pulse Pulse Resp BP Pulse Ox 05/10/21 15:11 106 H 05/10/21 14:55 37.5 C 109 H 20 117/84 95 05/10/21 12:21 37.0 C 99 H 16 105/71 94 05/10/21 08:50 107 H 05/10/21 07:04 37.2 C 106 H 18 123/82 97 Resident Activity Tracking Resident Involvement: Resident Care Provided Care Provided: Adult [facility]
--- NOTE | 2021-05-10 19:34 | Billing Data ---
Date of Service May 10, 2021 Coding Level of Care Code 52087 Initial Inpt Care Lvl 2
--- NOTE | 2021-05-10 20:31 | Billing Data ---
Date of Service May 10, 2021 Coding Level of Care Code 34042 Subseq Hosp Care Lvl 3
[2021-05-10] MEDS: ACETAMINOPHEN 325 MG TAB PO PRN (22:51)
[2021-05-11] MEDS: CEFEPIME 2,000 MG in SYRINGE 0 ML IV SCH (03:35)
[2021-05-11] MEDS: DOXYCYCLINE HYCLATE 100 MG in DEXTROSE 5% 100 ML IV SCH (03:35)
[2021-05-11] MEDS: LACTATED RINGER'S 1,000 ML IV SCH ×2 (04:58→11:01)
[2021-05-11] MEDS ORDERED: guaiFENesin/DEXTROM SYRUP 200MG/20MG 10ML UDC PO PRN (05:50)
[2021-05-11 08:35] LABS: Basophils # (auto) 0.01 K/uL (0-0.2); Basophils % (auto) 0.1 %; Eosinophils # (auto) 0.19 K/uL (0-0.5); Hemoglobin 13.2 g/dL (14.0-18.0); Immature Granulocytes # (auto) 0.03 K/uL (0.00-0.02); Immature Granulocytes % (auto) 0.3 %; Lymphocytes % (auto) 12.5 %; Mean Corpuscular Hemoglobin 30.6 pg (25-34); Mean Corpuscular Hgb Conc 35.7 g/dL (32-36); Mean Corpuscular Volume 85.6 fL (80-100); Mean Platelet Volume 9.4 fL (7.4-10.4); Monocytes # (auto) 0.72 K/uL (0.11-0.59); Monocytes % (auto) 7.5 %; Neutrophils # (auto) 7.46 K/uL (1.4-6.5); Neutrophils % (auto) 77.6 %; Platelet Count 248 K/uL (130-400); RDW Coefficient of Variation 12.2 % (11.5-14.5); RDW Standard Deviation 38.3 fL (36.4-46.3); Red Blood Count 4.32 M/uL (4.7-6.1); White Blood Count 9.61 K/uL (4.8-10.8)
[2021-05-11 08:41] LABS: Albumin Level 3.1 gm/dl (3.4-5.0); BUN Creatinine Ratio 7.3 (10-20); Calcium 8.8 mg/dl (8.5-10.1); Creatinine Clr Calc Pharmacy 101.9 ml/min; Est GFR (African American) 132.3 ml/min; Est GFR (Non-African American) 114.1 ml/min; Potassium 3.7 mmol/L (3.5-5.1)
[2021-05-11 08:51] LABS: Albumin Globulin Ratio 0.8 (0.9-2); Bilirubin,Total 0.7 mg/dl (0.2-1); Globulin 3.8 gm/dl (2.5-4.0); Phosphorus 3.2 mg/dl (2.5-4.9); Total Protein 6.9 gm/dl (6.4-8.2)
[2021-05-11] MEDS: LEVALBUTEROL HCL 0.63 MG/3 ML NEB NEB PRN (11:33)
--- NOTE | 2021-05-11 14:08 | Discharge Summary ---
Date of Service May 11, 2021 Admission HPI Per Admitting Provider Kerwin Lawson is a 20-year-old [employer] [facility] student presents for evaluation of fevers, chills, sweats and cough persistent over the last 4 days. Worse recall any specific triggers or changes over these 4 days but notes that it worsened/came to ahead last night with persistent feeling of fevers, chills, sweats, and inability to warm himself despite cranking up his heat intolerance. No other sick contacts over this time. No new partners. Has not consumed any fluids of his normal ROM. Denies abdominal pain, nausea, vomiting. Has had a hard time eating and drinking due to a sore throat over this time. No past history of mono. Admission Exam Per Admitting Provider Constitutional: WD/WN, vitals as above Eyes: PERRL, conjunctivae normal, anicteric sclerae Respiratory: normal respiratory effort, lungs clear to auscultation Auscultation: no crackles, no rales, no rhonchi and no wheezes Cardiovascular: Rate/Rhythm: regular rate and regular rhythm Heart Sounds: no gallop, no murmur and no cardiac rub Vessels: normal peripheral pulses; no JVD Extremities: no edema Gastrointestinal (Abdomen): Inspection/Auscultation: normal bowel sounds; abdomen not distended Percussion/Palpation: abdomen soft; abdomen nontender and no guarding Musculoskeletal: no cyanosis or clubbing, extremities motor strength 5/5 Skin: no rashes, warm and dry Neurologic: PERRL, EOMI, accommodation nl, no face palsy, no dysarthria CN's II-XI intact bilaterally and moves all extremities Psychiatric: Orientation: alert and oriented x 3 Principal Diagnosis bacterial pneumonia Discharge Exam GENERAL: No acute distress. Well developed and well nourished. Vital signs reviewed as above. EYES: EOMI. Anicteric sclerae. HENT: Moist mucous membranes. RESPIRATORY: Clear to auscultation bilaterally. Improved air movement bilaterally. CARDIOVASCULAR: Regular rate and rhythm. No murmurs. ABDOMEN: Soft, non-tender and non-distended. Normal bowel sounds. EXTREMITIES: No edema. Non-tender. SKIN: Warm, dry. No rashes or lesions. NEUROLOGIC: A/O x3. No focal neurological deficits. PSYCHIATRIC: Cooperative. Appropriate mood and affect. 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 Community Acquired Bacterial Pneumonia with Sepsis - T-max 39.5 C since admission; has been afebrile for ~48 hours - COVID-19 negative, flu negative, monoscreen negative, MRSA negative - Chest XR 05/09: Left greater than right lower lung opacity which may represent atelectasis, pneumonia, and/or aspiration. - Chest CTA 05/10: There is no evidence of pulmonary embolus in the main, lobar, or segmental pulmonary arteries. Multifocal airspace consolidation as detailed above is typical for pneumonia. Clinical correlation will be required and radiographic follow-up to resolution is recommended. Trace pleural effusions. - Elevated lactic acid on admission at 2.4 --> resolved at 1.1 - Elevated procalcitonin at 4.71 on admission --> worsened today to 7.81 --> improved to 4.93 - Remains w/ normal WBC - EBV reveals hx of mono; no active infection. Blood cultures negative to date. Urine legionella negative. MRSA nares negative. - Received IV cefepime and doxycycline during admission. Converted to cefdinir and doxycycline on admission with 10 day therapy tx. Acute kidney injury, resolved - Creatinine 1.42 on admission (no baseline) --> resolved at 0.96 on day of discharge - Likely secondary to decreased oral intake over the last several days in the setting of febrile illness Hyponatremia, resolved - Sodium of 128 on admission --> resolved at 138 today - Suspect contribution from decreased oral intake over the last several days prior to admission (2) Febrile illness, acute: (3) Acute kidney injury: (4) Hyponatremia: Total Time Total Time Spent Total Time Spent (In Minutes): >30 Discharge Plan Discharge Items Patient Disposition: Home - Self-Care Reason For Visit: FEBRILE ILLNESS Discharge Diagnosis: pneumonia Condition on Discharge: Good Activity: Resume your previous activity Non-emergency contact: Primary Care Provider Call non-emergency contact if: you have any medication questions and your symptoms worsen Follow-up/Referrals: [facility] [Primary Care Provider] - Diet: Regular Addtl Attending Provider Instructions: Kerwin, It was our pleasure to care for you at [facility] from 05/09/21 to 05/11/21. You initially presented to the ER with concerns of fever, chills, and cough. You were diagnosed with bacterial pneumonia. YOUR COVID TEST WAS NEGATIVE. During hospitalization, you were treated with IV fluids and IV antibiotics. You have done well and at this time we feel that it is safe for you to be discharged. You will be discharged with the following medications, please take them as prescribed: 1. Cefdinir (an antibiotic) -- Take 300 mg by mouth twice a day for the next 10 days. 2. Doxycycline (an antibiotic) -- Take 100mg by mouth twice a day for the next 10 days. 3. Cough medication syrup -- Take as needed at night If needed, you can continue Tylenol 500mg every 6 hours as needed. It is important that you stay well hydrated while you continue to get better -- goal is to drink 80 oz. of water per day. It is also important to get plenty of rest. You should follow up with [facility] within 3-5 days. You can also follow up with Dr. Grove, if desired, at [address] [place] [address]. If you have any questions, please call Dr. Grove at [phone]. Return to the ER if you have any worsening symptoms, cough, fever, or concerns. Pending Studies at Discharge: No Stand-Alone Forms: My [facility], Smoking Cessation Medications and DC Order Prescriptions: New cefdinir 300 mg capsule 300 mg PO BID 10 Days Qty: 20 RF: 0 doxycycline hyclate 100 mg capsule 100 mg PO BID 10 Days Qty: 20 RF: 0 acetaminophen-codeine 300-30 mg tablet 1 tab PO HS PRN (Reason: severe cough) Qty: 5 RF: 0 Continued acetaminophen [Tylenol] 325 mg Tablet 650 mg PO DIRECTED PRN (Reason: FEVER/PAIN) RF: 0 Discharge Orders: Discharge Order (Routine); Ordered 05/11/21 Ordered By: Charley Meeks/Other Patient Handouts: Treating Pneumonia Admission Data Admit Date/Time: 05/09/21 04:28 Attending Provider: Bishop Hummel Admit Provider: Conrad Farias Primary Care Provider: [facility] Other Providers: Alphonso Peterson Other Interventions: Discharge Summary Assessment (RN) Last Done: 05/11/21 15:00 Supervising Physician Co-Signing Physician Notes I personally examined the patient and verified all dill points of history and exam, discussed case, and agree with decision making with Dr Grove Still having some coughing fits, but overall feels good enough to go home. Discussed discharge plan. Vitals noted, in general he is awake and alert pleasant no distress. HEENT normocephalic atraumatic mucous membranes moist. Lungs are faint left greater than right basilar rales good air entry no accessory muscle use good effort. Tyra ro shows no focal deficits. Community-acquired pneumonia with severe sepsis (as manifested by FABY) present on admissionappears to be improved, definitely stable enough to go home. FABY has improved with fluids. Home on Doxy and cefdinir, discussed expected course of improvement, discussed what to watch for. Discussed incidental finding of blebs on CT and recommended outpatient follow-up, he asked as it relates to cough medicinerelated largely that it would be good for him to cough to expectorate out the mucus, but that at bedtime something along the lines of Tylenol with codeine would be reasonable to help him get a good night sleep. Answered all questions the best my ability and to his satisfaction. Stable for home, otherwise as above Resident Activity Tracking Resident Involvement: Resident Care Provided Care Provided: Adult Hospital Medicine
--- NOTE | 2021-05-11 19:53 | Billing Data ---
Date of Service May 11, 2021 Coding Level of Care Code D/C DAY MANAGEMENT >30 MINS
== END 2021-05-11 16:00 | disposition home or self-care (01) | DRG 871 ==
LOC: ED 01:27 → SUATTDRO 04:28 → EDINP 04:28 → 2W 14:48